=== PATIENT | female | born 2000 | race Caucasian/White ===

== ENCOUNTER 2021-08-08 10:03 | Inpatient (IN) ==
[2021-08-08] MEDS ORDERED: Famotidine 20 MG/2 ML VIAL IVP PRN (11:08)
[2021-08-08] MEDS ORDERED: Lidocaine 1% 20 ML MDV ID PRN (11:08)
[2021-08-08] MEDS ORDERED: Azithromycin 500 MG in 0.9 % Sodium Chloride 250 ML IVPB PRN (11:08)
[2021-08-08] MEDS ORDERED: Metoclopramide 10 MG/2 ML VIAL IVP PRN (11:08)
[2021-08-08] MEDS ORDERED: Ondansetron 4 MG/2 ML VIAL IVP PRN (11:08)
[2021-08-08] MEDS ORDERED: Naloxone 0.4 MG/ML INJ IVP PRN (11:08)
[2021-08-08 11:48] LABS: Basophils % 0.4 %; Eosinophils # 0.1 K/mcL (0.0-0.6); Hematocrit 37.5 % (35.3-44.9); Hemoglobin 12.6 g/dL (11.5-15.4); Immature Granulocytes % 1.1 % (0-4); Lymphocytes # 1.8 K/mcL (0.6-4.6); Lymphocytes % 18.8 %; Mean Corpuscular HGB Conc 33.6 g/dL (31.6-35.5); Mean Corpuscular Hemoglobin 29.2 pg (28.0-33.3); Monocytes # 0.7 K/mcL (0.0-1.3); Monocytes % 7.7 %; Neutrophils # 6.7 K/mcL (1.6-8.9); Platelet Count 155 K/mcL (140-400); Red Blood Count 4.31 M/mcL (3.82-4.97); Red Cell Distribution Width 14.7 % (11.5-14.5); White Blood Count 9.4 K/mcL (4.3-11.1)
[2021-08-08] MEDS ORDERED: miSOPROStoL 25 MCG TABLET PO SCH (12:00)
[2021-08-08 12:29] LABS: Influenza A PCR Negative (Negative); Influenza B PCR Negative (Negative); Resp. Syncytial Virus PCR Negative (Negative); SARS-CoV-2 by PCR (In House) Negative (Negative)
[2021-08-08] MEDS ORDERED: EPHEDrine 50 MG/ML VIAL IVP PRN (16:17)
[2021-08-08] MEDS: Ringers Solution, Lactated 1,000 ML IVC SCH (16:22)
[2021-08-08] MEDS: Oxytocin 20 units/ LR 1000 mL 20 UNIT/1,000 ML BAG IVC SCH (16:23)
[2021-08-08 18:54] LABS: Amphetamine Screen,Urine Negative ng/mL (Cutoff=1000); Barbiturate Screen,Urine Negative ng/mL (Cutoff=200); Benzodiazepines Screen,Urine Negative ng/mL (Cutoff=200); Cannabinoid Screen,Urine Negative ng/mL (Cutoff = 50); Cocaine Screen,Urine Negative ng/mL (Cutoff= 300); Opiate Screen,Urine Negative ng/mL (Cutoff=300); Phencyclidine Screen,Urine Negative ng/mL (Cutoff=25)
[2021-08-09] MEDS: Epidural Premix (fent/bupiv) 110 ML EP SCH ×2 (02:40→10:20)
[2021-08-09] MEDS: Ringers Solution, Lactated 1,000 ML IVC SCH ×2 (02:40→06:32)
[2021-08-09] MEDS ORDERED: 0.9 % Sodium Chloride 500 ML ONE (07:07)
[2021-08-09] MEDS ORDERED: *HR* Labetalol 20 MG/4 ML SYRINGE IVP ONE ×4 (09:58→15:40)
[2021-08-09] MEDS: Oxytocin 20 units/ LR 1000 mL 20 UNIT/1,000 ML BAG IVC SCH (13:57)
[2021-08-09] MEDS ORDERED: Ondansetron ODT 4 MG TAB.RAPDIS SL PRN (16:36)
[2021-08-09] MEDS ORDERED: Lanolin 7 G OINT...G. TP PRN (16:36)
[2021-08-09] MEDS ORDERED: Benzocaine/Menthol 56 GM AEROSOL SPRAY TP PRN (16:36)
[2021-08-09] MEDS ORDERED: Oxytocin 20 units/ LR 1000 mL 20 UNIT/1,000 ML BAG IVC ONE (16:36)
[2021-08-09] MEDS ORDERED: Oxytocin 20 units/ LR 1000 mL 20 UNIT/1,000 ML BAG IVC SCH (16:36)
[2021-08-09] MEDS: NIFEdipine XL (24 HR) 30 MG TAB.ER.24 PO SCH (17:18)
[2021-08-09] MEDS: Acetaminophen 325 MG TABLET PO SCH (18:55)
[2021-08-10 04:33] VITALS: BP 108/67; PULSE 100; TEMP 98; O2SAT 96
[2021-08-10 05:05] LABS: Basophils % 0.1 %; Hematocrit 27.8 % (35.3-44.9); Immature Granulocytes % 0.8 % (0-4); Lymphocytes % 7.8 %; Mean Corpuscular HGB Conc 34.2 g/dL (31.6-35.5); Mean Corpuscular Hemoglobin 30.4 pg (28.0-33.3); Mean Corpuscular Volume 88.8 fL (83.0-100.0); Monocytes % 4.8 %; Neutrophils # 18.3 K/mcL (1.6-8.9); Platelet Count 129 K/mcL (140-400); Red Blood Count 3.13 M/mcL (3.82-4.97); Segmented Neutrophils % 86.5 %
[2021-08-10 05:25] LABS: Hemoglobin 9.5 g/dL (11.5-15.4); Lymphocytes # 1.7 K/mcL (0.6-4.6); White Blood Count 21.2 K/mcL (4.3-11.1)
[2021-08-10] MEDS: NIFEdipine XL (24 HR) 30 MG TAB.ER.24 PO SCH (08:25)
[2021-08-10] MEDS: Acetaminophen 325 MG TABLET PO SCH (08:25)
[2021-08-10] MEDS ORDERED: Prenatal Vit/FA 1 EACH TABLET PO SCH (09:00)
== END 2021-08-10 09:56 | disposition home or self-care (01) | DRG 806 ==
LOC: 1NENULAB 10:03 → 1NENUOBS 08-09 16:29
PROVIDERS: ADMIT Obstetrics & Gynecology; ATTEND Obstetrics & Gynecology